=== PATIENT | female | born 1995 | race African-American/Black ===

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

== ENCOUNTER 2017-01-22 18:31 | Emergency (ER) | payer MEDICAID, OTHER ==
[~2017-01-22] VITALS: Ht 157.5 cm; Wt 60.0 kg
[~2017-01-22 18:31] MED LIST: ALBUAER3 INH; MACR100C2 PO; PHEN0.4T PO; SPIRCAP INH; VENTAER INH
[2017-01-22 18:33] VITALS: BP 112/68; PULSE 80; RESP 18; TEMP 98.2; O2SAT 99
--- NOTE | 2017-01-22 20:00 | PD ---
HPI Chief Complaint: GI Complaint Time Seen by Provider: 19:55 Travel History International Travel<30 days: No Contact w/Intl Traveler<30days: No Traveled to known affect area: No History of Present Illness HPI Patient is a 21-year-old female here for evaluation of posttussive emesis and upper respiratory symptoms. She developed hoarseness 2 days ago and then developed sore throat with some cough and nasal congestion. She has had several episodes of posttussive emesis with last 2 or 3 this morning. She denies nausea or spontaneous emesis. She denies abdominal pain. There has been no fever, chills, shortness of breath, wheezing. She has asthma but no recent symptoms. She has 3 inhalers but does not know the names of them. She denies diarrhea. Her appetite is normal. Her urine output is normal. She has no rashes. She has no eye redness or eye drainage. She has no local PCP. She moved here recently from [place]. History Past Medical History Asthma: Yes Hearing: No Immunizations Current: Yes Tetanus Vaccination: < 5 Years Vision or Eye Problem: No LMP: 2 days ago : 0 Para: 0 Past Surgical History Surgical History: No Previous Surgery Social History Tobacco Use in Home: No Alcohol Use: No Tobacco Use: No Substance Use: Yes (marijuana) Allergies-Medications (Allergen,Severity, Reaction): Coded Allergies: Penicillins (Verified Allergy, Unknown, 01/22/17) Reported Meds & Prescriptions Reported Meds & Active Scripts Active Pyridium (Phenazopyridine HCl) 100 Mg Tab 100 Mg PO Q8H PRN 3 Days Macrobid (Nitrofurantoin Monoh/Nitrofur Macro) 100 Mg Cap 100 Mg PO BID 5 Days Reported Proair Hfa 8.5 GM Inh (Albuterol Sulfate) 90 Mcg/Act Aer 2 Puff INH Q4-6H PRN 108 mcg/actuation Ventolin Hfa 18 GM Inh (Albuterol Sulfate) 90 Mcg/Act Aer 2 Puff INH Q4-6H PRN Spiriva Handihaler (Tiotropium Inh) 18 Mcg Cap 18 Mcg INH DAILY 1 capsule = 18 mcg ROS Except as stated in HPI: all other systems reviewed are Neg Physical Exam Narrative GENERAL APPEARANCE: The patient is a well-developed, well-nourished child in no acute distress. She is pink, alert and speaking clearly without shortness of breath, wheezing. SKIN: Skin is warm and dry without rashes. There is good turgor. HEENT: Throat is clear without erythema, swelling or exudate. Uvula is midline. Mucous membranes are moist. Airway is patent. The pupils are equal, round and reactive to light. Extraocular motions are intact. No drainage or injection. Both tympanic membranes are without erythema, dullness or loss of landmarks. No perforation. Mild nasal congestion is present. NECK: Supple and nontender with full range of motion without discomfort. No meningeal signs. No lymphadenopathy. LUNGS: Good air entry bilaterally with equal breath sounds without wheezes, rales or rhonchi. CHEST: The chest wall is without retractions or use of accessory muscles. HEART: Regular rate and rhythm without murmur. ABDOMEN: Soft, nondistended, nontender with positive active bowel sounds. No rebound tenderness and no guarding. No masses, no hepatosplenomegaly. EXTREMITIES: Full range of motion of all extremities is present. No cyanosis. Capillary refill is less than 2 seconds. NEUROLOGIC: The patient is alert, aware and appropriately interactive with parent and with examiner. Cranial nerves 2 to 12 are intact. Good tone. Data Data Last Documented VS Vital Signs Date Time Temp Pulse Resp B/P (MAP) Pulse Ox O2 Delivery O2 Flow Rate FiO2 01/22/17 18:33 98.2 80 18 112/68 (83) 99 Orders Orders Ed Discharge Order (01/22/17 20:00) MDM Medical Decision Making Medical Screen Exam Complete: Yes Emergency Medical Condition: Yes Medical Record Reviewed: Yes (One prior ED visit in our system was in 10/06 for urinary symptoms.) Differential Diagnosis Viral URI, bronchitis, sinusitis, pneumonia, asthma exacerbation Narrative Course 21-year-old female with clinical presentation most consistent with viral upper respiratory infection. She is well-appearing and well-hydrated. Her lungs are clear. She has no pharyngitis. I discussed diagnosis, expected course and treatment plan with her and she feels comfortable. I discussed signs of worsening and reasons to return to ER. Diagnosis Primary Impression: Upper respiratory infection Qualified Codes: J06.9 - Acute upper respiratory infection, unspecified; B97.89 - Other viral agents as the cause of diseases classified elsewhere Patient Instructions: General Instructions, Upper Respiratory Infection (ED) Departure Forms: School Release, Return to School Date: Jan 23, 2017 Tests/Procedures, Work Release Enter return to work date: Jan 23, 2017 Additional Instructions: Tylenol/Motrin for pain and fever. Rest. Fluids. Regular diet as tolerated. Return to ER if worsening. Med/Other Pt SpecificInfo: Other (Tylenol/Motrin for pain and fever.) Disposition: 01 DISCHARGE HOME Condition: Stable Primary Care Physician Unknown Elsie Hickey MD Jan 22, 2017 20:00
== END 2017-01-22 20:32 | disposition home or self-care (01) ==
LOC: NEPA 18:31
DX: J45.909 Unspecified asthma, uncomplicated (principal); J06.9 Acute upper respiratory infection, unspecified; B97.89 Other viral agents as the cause of diseases classified elsewhere
CPT/HCPCS: 99282